=== PATIENT | female | born 1940 ===

== ENCOUNTER 2021-02-12 09:42 | Inpatient (IN) | payer MEDICARE, OTHER, SELFPAY ==
[2021-02-12 10:35] LABS: Hemoglobin 13.5 g/dL (12.0-16.0); Mean Corpuscular HGB CONC 34.5 g/dL (32.0-36.0); Mean Corpuscular Hemoglobin 29.7 pg (27.0-31.0); RBC Distribution Width 17.5 % (11.5-14.5); Red Blood Cell (RBC) Count 4.55 mill/uL (4.20-5.40); White Blood Cell (WBC) Count 11.2 thou/uL (4.8-10.8)
[2021-02-12 10:36] LABS: #Lymphocytes 2.7 thou/uL (1.20-3.40); #Neutrophils 7.5 thou/uL (1.40-6.50); %Eosinophils 0.2 % (0.0-10.0); %Monocytes 8.8 % (0.0-10.0); %Neutrophils 66.9 % (42.0-75.0)
[2021-02-12 10:50] LABS: ALT (SGPT) 43 U/L (8-55); AST (SGOT) 48 U/L (5-34); Albumin 2.9 g/dL (3.4-4.8); Alkaline Phosphatase 48 U/L (40-110); Anion Gap 12 mmol/L (10-20); BUN (Urea Nitrogen) 19 mg/dL (9.8-20.1); Bilirubin, Total 1.5 mg/dL (0.2-1.2); CK (CPK) 685 U/L (29-168); Calc. Creatinine Clearance 0 mL/min (70-130); Calcium 9.2 mg/dL (7.8-10.44); Carbon Dioxide 26 mmol/L (23-31); Chloride 107 mmol/L (98-107); Globulin 3.7 g/dL (2.4-3.5); Glucose 118 mg/dL (83-110); Lipase 602 U/L (8-78); Potassium 4.3 mmol/L (3.5-5.1); Protein, Total 6.6 g/dL (5.8-8.1); Sodium 141 mmol/L (136-145)
[2021-02-12] MEDS ORDERED: Ketorolac Tromethamine 30 MG/ML VIAL ONE (11:03)
[2021-02-12] MEDS ORDERED: Morphine 4 MG/ML VIAL ONE (11:03)
[2021-02-12 11:08] LABS: Bite Cells SLIGHT = 2-5 cells (100X) (0-1/hpf); MDiff Complete? YES; Mean Platelet Volume 9.3 fL (7.4-10.4); Platelet Count 53 thou/uL (130-400); Platelet Morphology Comment Appears Decreased; Polychromasia MODERATE = 3-4 cells (100X) (0-2/hpf); Schistocytes SLIGHT = 2-5 cells (100X) (0-1/hpf)
[2021-02-12] MEDS ORDERED: Iopamidol-370 76% 500 ML 1 ML ONE (11:56)
[2021-02-12 12:01] LABS: SARS-CoV-2 NAA Rapid Test DETECTED (NotDetected)
[2021-02-12 15:02] LABS: Lactic Acid 1.6 mmol/L (0.5-2.2)
[2021-02-12] MEDS ORDERED: Benzonatate 100 MG CAP PO PRN (15:19)
[2021-02-12] MEDS ORDERED: Guaifenesin DM 100-10/5 ML UDCUP PO PRN (15:19)
[2021-02-12] MEDS ORDERED: Sodium Chloride 0.9% 1,000 ML IV SCH (15:30)
[2021-02-12] MEDS ORDERED: Acetaminophen 650 MG Suppository PR PRN (16:03)
[2021-02-12] MEDS ORDERED: Ondansetron PF 4 MG/2 ML Vial IVP PRN (16:03)
[2021-02-12] MEDS ORDERED: Ondansetron ODT 4 MG TAB PO PRN (16:03)
[2021-02-12] MEDS ORDERED: Senokot S 8.6-50 MG TAB PO PRN (16:03)
[2021-02-12 17:05] LABS: Troponin I 0.013 ng/mL (< 0.028)
[2021-02-12] MEDS ORDERED: VANCOMYCIN 1.25 GM/250 ML BAG 1.25 GM in Premix Bag 1 BAG IVPB SCH (18:00)
[2021-02-12 19:50] LABS: Bacteria/HPF None Seen HPF (None Seen); Bilirubin Negative (Negative); Blood, Urine 1+ (Negative); Clarity Clear (Clear); Glucose, Urine (Dipstick) Normal (Negative); Ketone, Urine Negative (Negative); Leukocyte 500 Leu/uL (Negative); Nitrite Negative (Negative); Protein, Urine (Dipstick) 30 mg/dL (Neg-Trace); Squamous Epithelial 0-3 HPF (0-3); Urobilinogen 3 mg/dL (Less than 2)
[2021-02-12 19:56] LABS: Troponin I Less than 0.010 ng/mL (< 0.028)
[2021-02-12] MEDS ORDERED: Vancomycin 1 GM in Premix Bag 1 BAG IVPB SCH (21:00)
[2021-02-12] MEDS: Famotidine/PF 20 mg/2ml Vial SLOW IVP SCH (22:19)
[2021-02-12] MEDS: Cefepime 2 GM in Sodium Chloride 0.9% 100 ML IVPB SCH (22:19)
[2021-02-12] MEDS: Famotidine 20 MG TAB PO SCH (22:20)
[2021-02-13 05:14] LABS: Anion Gap 13 mmol/L (10-20); BUN (Urea Nitrogen) 19 mg/dL (9.8-20.1); CK (CPK) 327 U/L (29-168); Calc. Creatinine Clearance 800 mL/min (70-130); Calcium 8.7 mg/dL (7.8-10.44); Carbon Dioxide 22 mmol/L (23-31); Chloride 114 mmol/L (98-107); Glucose 85 mg/dL (83-110); Lipase 100 U/L (8-78); Potassium 3.6 mmol/L (3.5-5.1); Sodium 145 mmol/L (136-145)
[2021-02-13] MEDS: Cefepime 2 GM in Sodium Chloride 0.9% 100 ML IVPB SCH ×2 (05:43→21:38)
[2021-02-13] MEDS: Cholecalciferol 1,000 UNITS (25 MCG) TAB PO SCH (09:59)
[2021-02-13] MEDS: Famotidine 20 MG TAB PO SCH ×2 (09:59→21:40)
[2021-02-13] MEDS: Zinc Sulfate 220 MG CAP PO SCH (09:59)
[2021-02-13] MEDS: Famotidine/PF 20 mg/2ml Vial SLOW IVP SCH ×2 (09:59→21:38)
[2021-02-13] MEDS: Pantoprazole 40 MG VIAL IVP SCH (09:59)
[2021-02-13] MEDS: Ascorbic Acid 500 mg Chewable Tablet PO SCH (09:59)
[2021-02-13] MEDS ORDERED: Sodium Chloride 0.9% 500 ML IV SCH (10:45)
[2021-02-13] MEDS: Sodium Chloride 0.9% 1,000 ML IV SCH ×2 (11:45→21:38)
[2021-02-13] MEDS ORDERED: FLU VACC QS2021-22(65YR UP)/PF 240 MCG/0.7 ML SYRINGE IM ONE (14:00)
[2021-02-13 17:04] LABS: #Eosinphils 0.1 thou/uL (0.0-0.7); #Lymphocytes 1.6 thou/uL (1.20-3.40); #Monocytes 1.1 thou/uL (0.11-0.59); #Neutrophils 7.6 thou/uL (1.40-6.50); %Basophils 0.1 % (0.0-1.0); %Eosinophils 0.5 % (0.0-10.0); %Lymphocytes 15.7 % (21.0-51.0); %Monocytes 10.7 % (0.0-10.0); %Neutrophils 72.9 % (42.0-75.0); Hemoglobin 11.8 g/dL (12.0-16.0); Mean Corpuscular HGB CONC 33.3 g/dL (32.0-36.0); Mean Corpuscular Hemoglobin 29.7 pg (27.0-31.0); Mean Corpuscular Volume 89.1 fL (78.0-98.0); Mean Platelet Volume 8.8 fL (7.4-10.4); Platelet Count 63 thou/uL (130-400); Red Blood Cell (RBC) Count 3.97 mill/uL (4.20-5.40); White Blood Cell (WBC) Count 10.4 thou/uL (4.8-10.8)
[2021-02-13] MEDS: VANCOMYCIN 1.25 GM/250 ML BAG 1.25 GM in Premix Bag 1 BAG IVPB SCH (17:28)
[2021-02-14 05:44] LABS: #Eosinphils 0.1 thou/uL (0.0-0.7); #Lymphocytes 1.5 thou/uL (1.20-3.40); #Monocytes 1.2 thou/uL (0.11-0.59); #Neutrophils 7.9 thou/uL (1.40-6.50); %Basophils 0.4 % (0.0-1.0); %Eosinophils 0.5 % (0.0-10.0); %Lymphocytes 14.3 % (21.0-51.0); %Monocytes 11.1 % (0.0-10.0); %Neutrophils 73.7 % (42.0-75.0); Mean Corpuscular HGB CONC 33.9 g/dL (32.0-36.0); Mean Corpuscular Hemoglobin 29.5 pg (27.0-31.0); Mean Platelet Volume 8.6 fL (7.4-10.4); Platelet Count 57 thou/uL (130-400); RBC Distribution Width 17.8 % (11.5-14.5); Red Blood Cell (RBC) Count 4.07 mill/uL (4.20-5.40); White Blood Cell (WBC) Count 10.7 thou/uL (4.8-10.8)
[2021-02-14] MEDS: Cefepime 2 GM in Sodium Chloride 0.9% 100 ML IVPB SCH ×2 (05:59→17:12)
[2021-02-14 06:01] LABS: Anion Gap 11 mmol/L (10-20); BUN (Urea Nitrogen) 18 mg/dL (9.8-20.1); Calc. Creatinine Clearance 788 mL/min (70-130); Calcium 8.5 mg/dL (7.8-10.44); Carbon Dioxide 18 mmol/L (23-31); Chloride 121 mmol/L (98-107); Glucose 89 mg/dL (83-110); Potassium 3.2 mmol/L (3.5-5.1); Sodium 147 mmol/L (136-145)
[2021-02-14] MEDS: Sodium Chloride 0.9% 1,000 ML IV SCH (06:19)
[2021-02-14] MEDS: Famotidine 20 MG TAB PO SCH (08:50)
[2021-02-14] MEDS: Ascorbic Acid 500 mg Chewable Tablet PO SCH (08:50)
[2021-02-14] MEDS: Zinc Sulfate 220 MG CAP PO SCH (08:50)
[2021-02-14] MEDS: Cholecalciferol 1,000 UNITS (25 MCG) TAB PO SCH (08:50)
[2021-02-14] MEDS: Pantoprazole 40 MG VIAL IVP SCH (08:51)
[2021-02-14] MEDS: Lactated Ringer's 1,000 ML IV SCH ×2 (11:52→21:33)
[2021-02-14] MEDS: VANCOMYCIN 1.25 GM/250 ML BAG 1.25 GM in Premix Bag 1 BAG IVPB SCH (15:26)
[2021-02-14 15:49] LABS: Vancomycin, Trough 6.5 ug/mL
[2021-02-14 16:30] VITALS: BMI 25.4
[2021-02-14] MEDS ORDERED: Potassium Chloride 10 MEQ in Premix Bag 1 BAG IVPB SCH (21:00)
[2021-02-15] MEDS ORDERED: Vancomycin 1 GM in Premix Bag 1 BAG IVPB SCH (04:00)
[2021-02-15 06:28] LABS: #Eosinphils 0.1 thou/uL (0.0-0.7); #Lymphocytes 1.6 thou/uL (1.20-3.40); #Monocytes 1.7 thou/uL (0.11-0.59); %Basophils 0.2 % (0.0-1.0); %Eosinophils 0.5 % (0.0-10.0); %Lymphocytes 11.8 % (21.0-51.0); %Monocytes 12.6 % (0.0-10.0); %Neutrophils 74.9 % (42.0-75.0); Hemoglobin 12.4 g/dL (12.0-16.0); Mean Corpuscular HGB CONC 33.7 g/dL (32.0-36.0); Mean Corpuscular Hemoglobin 29.3 pg (27.0-31.0); Mean Platelet Volume 8.7 fL (7.4-10.4); Platelet Count 56 thou/uL (130-400); RBC Distribution Width 17.6 % (11.5-14.5); Red Blood Cell (RBC) Count 4.24 mill/uL (4.20-5.40); White Blood Cell (WBC) Count 13.4 thou/uL (4.8-10.8)
[2021-02-15 06:46] LABS: Anion Gap 12 mmol/L (10-20); BUN (Urea Nitrogen) 17 mg/dL (9.8-20.1); Calc. Creatinine Clearance 76 mL/min (70-130); Carbon Dioxide 19 mmol/L (23-31); Chloride 119 mmol/L (98-107); Glucose 100 mg/dL (83-110); Potassium 3.4 mmol/L (3.5-5.1); Sodium 147 mmol/L (136-145)
[2021-02-15] MEDS: Lactated Ringer's 1,000 ML IV SCH ×4 (09:45→19:37)
[2021-02-15] MEDS: Cholecalciferol 1,000 UNITS (25 MCG) TAB PO SCH (09:46)
[2021-02-15] MEDS: Ascorbic Acid 500 mg Chewable Tablet PO SCH (09:46)
[2021-02-15] MEDS: Zinc Sulfate 220 MG CAP PO SCH (09:46)
[2021-02-15] MEDS: Pantoprazole 40 MG VIAL IVP SCH (09:48)
[2021-02-16] MEDS: Lactated Ringer's 1,000 ML IV SCH ×2 (05:07→16:38)
[2021-02-16 05:22] LABS: #Eosinphils 0.1 thou/uL (0.0-0.7); #Lymphocytes 1.8 thou/uL (1.20-3.40); #Neutrophils 11.3 thou/uL (1.40-6.50); %Basophils 0.1 % (0.0-1.0); %Eosinophils 0.3 % (0.0-10.0); %Lymphocytes 11.6 % (21.0-51.0); %Monocytes 13.2 % (0.0-10.0); %Neutrophils 74.8 % (42.0-75.0); Hemoglobin 11.8 g/dL (12.0-16.0); Mean Corpuscular HGB CONC 34.3 g/dL (32.0-36.0); Mean Corpuscular Hemoglobin 29.7 pg (27.0-31.0); Mean Corpuscular Volume 86.5 fL (78.0-98.0); Mean Platelet Volume 8.9 fL (7.4-10.4); Platelet Count 54 thou/uL (130-400); RBC Distribution Width 17.6 % (11.5-14.5); Red Blood Cell (RBC) Count 3.96 mill/uL (4.20-5.40); White Blood Cell (WBC) Count 15.1 thou/uL (4.8-10.8)
[2021-02-16 05:38] LABS: Anion Gap 11 mmol/L (10-20); BUN (Urea Nitrogen) 16 mg/dL (9.8-20.1); Calc. Creatinine Clearance 76 mL/min (70-130); Calcium 8.5 mg/dL (7.8-10.44); Carbon Dioxide 20 mmol/L (23-31); Chloride 119 mmol/L (98-107); Glucose 103 mg/dL (83-110); Sodium 146 mmol/L (136-145)
[2021-02-16] MEDS: Amlodipine 10 MG TAB PO SCH (10:23)
[2021-02-16] MEDS: Ascorbic Acid 500 mg Chewable Tablet PO SCH (10:25)
[2021-02-16] MEDS: Cholecalciferol 1,000 UNITS (25 MCG) TAB PO SCH (10:29)
[2021-02-16] MEDS: Zinc Sulfate 220 MG CAP PO SCH (10:31)
[2021-02-16] MEDS: Pantoprazole 40 MG VIAL IVP SCH (10:32)
[2021-02-16] MEDS: Acetaminophen 325 MG TAB PO PRN (23:35)
[2021-02-17] MEDS: Lactated Ringer's 1,000 ML IV SCH ×2 (00:13→05:25)
[2021-02-17] MEDS: Cholecalciferol 1,000 UNITS (25 MCG) TAB PO SCH (09:11)
[2021-02-17] MEDS: Ascorbic Acid 500 mg Chewable Tablet PO SCH (09:11)
[2021-02-17] MEDS: Pantoprazole 40 MG VIAL IVP SCH (09:11)
[2021-02-17] MEDS: Amlodipine 10 MG TAB PO SCH (09:12)
[2021-02-17] MEDS: Zinc Sulfate 220 MG CAP PO SCH (09:12)
[2021-02-17 12:37] LABS: #Eosinphils 0.2 thou/uL (0.0-0.7); #Lymphocytes 1.9 thou/uL (1.20-3.40); #Monocytes 1.4 thou/uL (0.11-0.59); #Neutrophils 8.4 thou/uL (1.40-6.50); %Basophils 0.1 % (0.0-1.0); %Eosinophils 1.5 % (0.0-10.0); %Monocytes 11.6 % (0.0-10.0); %Neutrophils 70.8 % (42.0-75.0); Hemoglobin 10.8 g/dL (12.0-16.0); Mean Corpuscular HGB CONC 34.6 g/dL (32.0-36.0); Mean Corpuscular Hemoglobin 29.6 pg (27.0-31.0); Mean Corpuscular Volume 85.6 fL (78.0-98.0); Platelet Count 52 thou/uL (130-400); RBC Distribution Width 17.5 % (11.5-14.5); Red Blood Cell (RBC) Count 3.64 mill/uL (4.20-5.40); White Blood Cell (WBC) Count 11.9 thou/uL (4.8-10.8)
[2021-02-17 12:55] LABS: Phosphorus 1.3 mg/dL (2.3-4.7)
[2021-02-17 14:20] LABS: ALT (SGPT) 26 U/L (8-55); AST (SGOT) 27 U/L (5-34); Albumin 2.1 g/dL (3.4-4.8); Alkaline Phosphatase 39 U/L (40-110); Anion Gap 9 mmol/L (10-20); BUN (Urea Nitrogen) 14 mg/dL (9.8-20.1); Bilirubin, Total 1.7 mg/dL (0.2-1.2); CRP (Inflammatory) 11.74 mg/dL (= or < 0.5); Calc. Creatinine Clearance 81 mL/min (70-130); Calcium 8.5 mg/dL (7.8-10.44); Carbon Dioxide 21 mmol/L (23-31); Chloride 118 mmol/L (98-107); Glucose 112 mg/dL (83-110); Magnesium 1.6 mg/dL (1.6-2.6); Protein, Total 5.1 g/dL (5.8-8.1); Sodium 145 mmol/L (136-145)
[2021-02-17] MEDS: Potassium Chloride 10 MEQ in Premix Bag 1 BAG IVPB SCH ×2 (21:57→23:24)
[2021-02-17] MEDS: PHOS-NAK 1 PKT PACK PO SCH (21:57)
[2021-02-18] MEDS: Potassium Chloride 10 MEQ in Premix Bag 1 BAG IVPB SCH ×2 (00:49→02:44)
[2021-02-18] MEDS: PHOS-NAK 1 PKT PACK PO SCH ×3 (09:13→21:30)
[2021-02-18] MEDS: Amlodipine 10 MG TAB PO SCH (09:13)
[2021-02-18] MEDS: Zinc Sulfate 220 MG CAP PO SCH (09:14)
[2021-02-18] MEDS: Ascorbic Acid 500 mg Chewable Tablet PO SCH (09:14)
[2021-02-18] MEDS: Pantoprazole 40 MG VIAL IVP SCH (09:14)
[2021-02-18] MEDS: Cholecalciferol 1,000 UNITS (25 MCG) TAB PO SCH (09:14)
[2021-02-18 13:32] LABS: Hemoglobin 10.5 g/dL (12.0-16.0); Mean Corpuscular HGB CONC 33.6 g/dL (32.0-36.0); Mean Corpuscular Hemoglobin 29.1 pg (27.0-31.0); Mean Corpuscular Volume 86.7 fL (78.0-98.0); Mean Platelet Volume 9.7 fL (7.4-10.4); Platelet Count 56 thou/uL (130-400); RBC Distribution Width 17.9 % (11.5-14.5); Red Blood Cell (RBC) Count 3.62 mill/uL (4.20-5.40); White Blood Cell (WBC) Count 11.4 thou/uL (4.8-10.8)
[2021-02-18 13:50] LABS: ALT (SGPT) 28 U/L (8-55); AST (SGOT) 37 U/L (5-34); Alkaline Phosphatase 42 U/L (40-110); Anion Gap 11 mmol/L (10-20); BUN (Urea Nitrogen) 11 mg/dL (9.8-20.1); Bilirubin, Total 1.7 mg/dL (0.2-1.2); Calc. Creatinine Clearance 86 mL/min (70-130); Calcium 8.1 mg/dL (7.8-10.44); Carbon Dioxide 20 mmol/L (23-31); Chloride 115 mmol/L (98-107); Globulin 3.1 g/dL (2.4-3.5); Glucose 105 mg/dL (83-110); Magnesium 1.5 mg/dL (1.6-2.6); Phosphorus 1.7 mg/dL (2.3-4.7); Potassium 3.2 mmol/L (3.5-5.1); Protein, Total 5.1 g/dL (5.8-8.1); Sodium 143 mmol/L (136-145)
[2021-02-18] MEDS ORDERED: Magnesium 2 GM/50 ML 4 GM in Premix Bag 1 BAG IVPB SCH (14:00)
[2021-02-18] MEDS ORDERED: Potassium Phosphate 30 MMOL, Magnesium Sulfate 2 GM in Sodium Chloride 0.9% 250 ML 250 ML IVPB SCH (14:00)
[2021-02-18 14:06] LABS: #Eosinphils 0.2 thou/uL (0.0-0.7); #Lymphocytes 2.4 thou/uL (1.20-3.40); #Monocytes 1.2 thou/uL (0.11-0.59); #Neutrophils 7.6 thou/uL (1.40-6.50); %Basophils 0.1 % (0.0-1.0); %Eosinophils 1.4 % (0.0-10.0); %Lymphocytes 21.9 % (21.0-51.0); %Monocytes 10.6 % (0.0-10.0); Anisocytosis SLIGHT = 6-15 cells (100X) (0-5/hpf); Band 2 % (5-11); Eosinophils 1 % (0-10); Lymphocytes 26 % (21-51); MDiff Complete? YES; Metamyelocyte 1 % (0-0); Monocytes 6 % (0-10); Neutrophil 64 % (42-75); Ovalocytes SLIGHT = 2-5 cells (100X) (0-1/hpf); Platelet Morphology Comment Appears Decreased; Polychromasia SLIGHT = 2-3 cells (100X) (0-2/hpf)
[2021-02-18 22:27] LABS: SARS-CoV-2 PCR by NAA DETECTED (NotDetected)
[2021-02-19 07:43] LABS: #Eosinphils 0.1 thou/uL (0.0-0.7); #Lymphocytes 2.7 thou/uL (1.20-3.40); #Monocytes 1.6 thou/uL (0.11-0.59); #Neutrophils 9.2 thou/uL (1.40-6.50); %Basophils 0.3 % (0.0-1.0); %Eosinophils 0.7 % (0.0-10.0); %Lymphocytes 19.5 % (21.0-51.0); %Monocytes 11.9 % (0.0-10.0); %Neutrophils 67.5 % (42.0-75.0); Hemoglobin 11.5 g/dL (12.0-16.0); Mean Corpuscular HGB CONC 33.2 g/dL (32.0-36.0); Mean Corpuscular Hemoglobin 28.4 pg (27.0-31.0); Mean Corpuscular Volume 85.4 fL (78.0-98.0); Mean Platelet Volume 9.7 fL (7.4-10.4); Platelet Count 55 thou/uL (130-400); RBC Distribution Width 17.8 % (11.5-14.5); Red Blood Cell (RBC) Count 4.05 mill/uL (4.20-5.40); White Blood Cell (WBC) Count 13.6 thou/uL (4.8-10.8)
[2021-02-19 07:48] LABS: Anion Gap 13 mmol/L (10-20); BUN (Urea Nitrogen) 8 mg/dL (9.8-20.1); Calc. Creatinine Clearance 89 mL/min (70-130); Carbon Dioxide 19 mmol/L (23-31); Chloride 113 mmol/L (98-107); Glucose 102 mg/dL (83-110); Magnesium 1.8 mg/dL (1.6-2.6); Phosphorus 3.2 mg/dL (2.3-4.7); Potassium 3.9 mmol/L (3.5-5.1); Sodium 141 mmol/L (136-145)
[2021-02-19] MEDS: Ascorbic Acid 500 mg Chewable Tablet PO SCH (08:06)
[2021-02-19] MEDS: Cholecalciferol 1,000 UNITS (25 MCG) TAB PO SCH (08:06)
[2021-02-19] MEDS: PHOS-NAK 1 PKT PACK PO SCH ×3 (08:06→20:59)
[2021-02-19] MEDS: Pantoprazole 40 MG VIAL IVP SCH (08:06)
[2021-02-19] MEDS: Zinc Sulfate 220 MG CAP PO SCH (08:06)
[2021-02-19] MEDS: Amlodipine 10 MG TAB PO SCH (08:06)
[2021-02-19] MEDS ORDERED: Magnesium Sulfate 4 GM in Sodium Chloride 0.9% 250 ML 250 ML IVPB SCH (10:30)
[2021-02-19] MEDS: Potassium Chloride 20 MEQ in Premix Bag 1 BAG IVPB SCH ×2 (11:36→13:49)
[2021-02-20] MEDS: Pantoprazole 40 MG VIAL IVP SCH (07:40)
[2021-02-20] MEDS: Zinc Sulfate 220 MG CAP PO SCH (07:41)
[2021-02-20] MEDS: Acetaminophen 325 MG TAB PO PRN (07:41)
[2021-02-20] MEDS: Amlodipine 10 MG TAB PO SCH (07:41)
[2021-02-20] MEDS: Ascorbic Acid 500 mg Chewable Tablet PO SCH (07:41)
[2021-02-20] MEDS: Cholecalciferol 1,000 UNITS (25 MCG) TAB PO SCH (07:42)
[2021-02-20 07:49] LABS: Hemoglobin 10.6 g/dL (12.0-16.0); Mean Corpuscular HGB CONC 35.3 g/dL (32.0-36.0); Mean Corpuscular Hemoglobin 29.5 pg (27.0-31.0); Mean Corpuscular Volume 83.8 fL (78.0-98.0); Mean Platelet Volume 10.8 fL (7.4-10.4); Platelet Count 40 thou/uL (130-400); RBC Distribution Width 18.2 % (11.5-14.5); Red Blood Cell (RBC) Count 3.58 mill/uL (4.20-5.40)
[2021-02-20 07:59] LABS: Anion Gap 10 mmol/L (10-20); BUN (Urea Nitrogen) 11 mg/dL (9.8-20.1); Calc. Creatinine Clearance 83 mL/min (70-130); Calcium 7.9 mg/dL (7.8-10.44); Carbon Dioxide 25 mmol/L (23-31); Chloride 113 mmol/L (98-107); Glucose 105 mg/dL (83-110); Magnesium 1.7 mg/dL (1.6-2.6); Phosphorus 2.6 mg/dL (2.3-4.7); Sodium 144 mmol/L (136-145)
[2021-02-20 08:24] LABS: #Basophils 0.1 thou/uL (0.0-0.2); #Eosinphils 0.1 thou/uL (0.0-0.7); #Lymphocytes 3.1 thou/uL (1.20-3.40); #Monocytes 1.6 thou/uL (0.11-0.59); #Neutrophils 10.1 thou/uL (1.40-6.50); %Basophils 0.3 % (0.0-1.0); %Eosinophils 0.7 % (0.0-10.0); %Lymphocytes 20.4 % (21.0-51.0); %Neutrophils 67.5 % (42.0-75.0); Anisocytosis MODERATE=16-30 cells (100X) (0-5/hpf); Band 2 % (5-11); Eosinophils 1 % (0-10); Lymphocytes 24 % (21-51); MDiff Complete? YES; Metamyelocyte 1 % (0-0); Monocytes 6 % (0-10); Myelocyte 1 % (0-0); Neutrophil 64 % (42-75); Nucleated RBC 1 % (0); Platelet Morphology Comment Appears Decreased; Polychromasia MODERATE = 3-4 cells (100X) (0-2/hpf); Reactive Lymphocytes 1 % (0-10); Schistocytes SLIGHT = 2-5 cells (100X) (0-1/hpf)
[2021-02-20] MEDS ORDERED: Morphine 4 MG/ML VIAL SLOW IVP PRN (16:25)
[2021-02-21 08:16] LABS: Anion Gap 10 mmol/L (10-20); BUN (Urea Nitrogen) 13 mg/dL (9.8-20.1); Calc. Creatinine Clearance 88 mL/min (70-130); Carbon Dioxide 24 mmol/L (23-31); Chloride 113 mmol/L (98-107); Glucose 96 mg/dL (83-110); Magnesium 1.7 mg/dL (1.6-2.6); Phosphorus 2.4 mg/dL (2.3-4.7); Potassium 3.6 mmol/L (3.5-5.1); Sodium 143 mmol/L (136-145)
[2021-02-21 08:28] LABS: #Basophils 0.1 thou/uL (0.0-0.2); #Eosinphils 0.2 thou/uL (0.0-0.7); #Lymphocytes 3.1 thou/uL (1.20-3.40); #Monocytes 1.4 thou/uL (0.11-0.59); #Neutrophils 9.3 thou/uL (1.40-6.50); %Basophils 0.5 % (0.0-1.0); %Eosinophils 1.3 % (0.0-10.0); %Lymphocytes 22.1 % (21.0-51.0); %Monocytes 10.1 % (0.0-10.0); %Neutrophils 66.1 % (42.0-75.0); Anisocytosis MODERATE=16-30 cells (100X) (0-5/hpf); Hemoglobin 10.1 g/dL (12.0-16.0); MDiff Complete? YES; Mean Corpuscular HGB CONC 34.4 g/dL (32.0-36.0); Mean Corpuscular Hemoglobin 29.6 pg (27.0-31.0); Mean Corpuscular Volume 86.2 fL (78.0-98.0); Mean Platelet Volume 9.7 fL (7.4-10.4); Platelet Count 40 thou/uL (130-400); Platelet Morphology Comment Appears Decreased; Polychromasia MODERATE = 3-4 cells (100X) (0-2/hpf); RBC Distribution Width 19.3 % (11.5-14.5); Red Blood Cell (RBC) Count 3.41 mill/uL (4.20-5.40); White Blood Cell (WBC) Count 14.1 thou/uL (4.8-10.8)
[2021-02-21] MEDS: Amlodipine 10 MG TAB PO SCH (09:14)
[2021-02-21] MEDS: Pantoprazole 40 MG VIAL IVP SCH (09:14)
[2021-02-21] MEDS: Cholecalciferol 1,000 UNITS (25 MCG) TAB PO SCH (09:15)
[2021-02-21] MEDS: Zinc Sulfate 220 MG CAP PO SCH (09:15)
[2021-02-21] MEDS: Ascorbic Acid 500 mg Chewable Tablet PO SCH (09:15)
[2021-02-21] MEDS: Acetaminophen 325 MG TAB PO PRN (09:18)
[2021-02-21] MEDS: Magnesium 2 GM/50 ML 2 GM in Premix Bag 1 BAG IVPB SCH ×2 (10:17→14:18)
[2021-02-21] MEDS: Potassium Chloride 20 MEQ in Premix Bag 1 BAG IVPB SCH ×2 (17:09→18:25)
[2021-02-22] MEDS: Amlodipine 10 MG TAB PO SCH (09:30)
[2021-02-22] MEDS: Cholecalciferol 1,000 UNITS (25 MCG) TAB PO SCH (09:31)
[2021-02-22] MEDS: Zinc Sulfate 220 MG CAP PO SCH (09:31)
[2021-02-22] MEDS: Ascorbic Acid 500 mg Chewable Tablet PO SCH (09:31)
[2021-02-22] MEDS: Pantoprazole 40 MG VIAL IVP SCH (09:32)
[2021-02-22 12:18] LABS: Anion Gap 11 mmol/L (10-20); BUN (Urea Nitrogen) 11 mg/dL (9.8-20.1); Calc. Creatinine Clearance 88 mL/min (70-130); Calcium 8.1 mg/dL (7.8-10.44); Carbon Dioxide 22 mmol/L (23-31); Chloride 112 mmol/L (98-107); Glucose 127 mg/dL (83-110); Magnesium 1.9 mg/dL (1.6-2.6); Phosphorus 2.1 mg/dL (2.3-4.7); Potassium 3.8 mmol/L (3.5-5.1); Sodium 141 mmol/L (136-145); Uric Acid 2.9 mg/dL (2.6-6.0)
[2021-02-22 12:26] LABS: #Eosinphils 0.3 thou/uL (0.0-0.7); #Lymphocytes 2.7 thou/uL (1.20-3.40); #Monocytes 1.4 thou/uL (0.11-0.59); #Neutrophils 12.5 thou/uL (1.40-6.50); %Basophils 0.2 % (0.0-1.0); %Eosinophils 1.5 % (0.0-10.0); %Monocytes 8.4 % (0.0-10.0); %Neutrophils 73.9 % (42.0-75.0); Anisocytosis MODERATE=16-30 cells (100X) (0-5/hpf); Band 6 % (5-11); Bite Cells SLIGHT = 2-5 cells (100X) (0-1/hpf); Eosinophils 1 % (0-10); Hemoglobin 10.3 g/dL (12.0-16.0); Lymphocytes 15 % (21-51); MDiff Complete? YES; Mean Corpuscular HGB CONC 32.2 g/dL (32.0-36.0); Mean Corpuscular Volume 86.9 fL (78.0-98.0); Mean Platelet Volume 9.9 fL (7.4-10.4); Monocytes 6 % (0-10); Myelocyte 1 % (0-0); Neutrophil 71 % (42-75); Platelet Count 46 thou/uL (130-400); Platelet Morphology Comment Appears Decreased; Polychromasia MODERATE = 3-4 cells (100X) (0-2/hpf); Red Blood Cell (RBC) Count 3.69 mill/uL (4.20-5.40); Schistocytes SLIGHT = 2-5 cells (100X) (0-1/hpf); White Blood Cell (WBC) Count 16.9 thou/uL (4.8-10.8)
[2021-02-22] MEDS ORDERED: Metoprolol Tartrate 25 MG TAB PO SCH (15:00)
[2021-02-22] MEDS: PHOS-NAK 1 PKT PACK PO SCH ×2 (15:46→20:57)
[2021-02-22] MEDS: levETIRAcetam 500 MG TAB PO SCH (20:57)
[2021-02-23 07:22] LABS: Hemoglobin 10.1 g/dL (12.0-16.0); Mean Corpuscular Hemoglobin 28.8 pg (27.0-31.0); Mean Corpuscular Volume 87.3 fL (78.0-98.0); Mean Platelet Volume 10.2 fL (7.4-10.4); Platelet Count 42 thou/uL (130-400); RBC Distribution Width 21.7 % (11.5-14.5); Red Blood Cell (RBC) Count 3.51 mill/uL (4.20-5.40); White Blood Cell (WBC) Count 15.9 thou/uL (4.8-10.8)
[2021-02-23 07:24] LABS: Anion Gap 12 mmol/L (10-20); BUN (Urea Nitrogen) 10 mg/dL (9.8-20.1); Calc. Creatinine Clearance 83 mL/min (70-130); Carbon Dioxide 22 mmol/L (23-31); Chloride 112 mmol/L (98-107); Glucose 114 mg/dL (83-110); Magnesium 1.8 mg/dL (1.6-2.6); Potassium 3.9 mmol/L (3.5-5.1); Sodium 142 mmol/L (136-145)
[2021-02-23 09:11] VITALS: BP 158/78; TEMP 98.5
[2021-02-23] MEDS: Cholecalciferol 1,000 UNITS (25 MCG) TAB PO SCH (10:34)
[2021-02-23] MEDS: Ascorbic Acid 500 mg Chewable Tablet PO SCH (10:35)
[2021-02-23] MEDS: levETIRAcetam 500 MG TAB PO SCH (10:35)
[2021-02-23] MEDS: PHOS-NAK 1 PKT PACK PO SCH (10:36)
[2021-02-23] MEDS: Zinc Sulfate 220 MG CAP PO SCH (10:36)
[2021-02-23] MEDS: Pantoprazole 40 MG VIAL IVP SCH (10:36)
[2021-02-23 10:37] LABS: #Eosinphils 0.2 thou/uL (0.0-0.7); #Lymphocytes 2.7 thou/uL (1.20-3.40); #Monocytes 1.6 thou/uL (0.11-0.59); #Neutrophils 11.4 thou/uL (1.40-6.50); %Eosinophils 1.2 % (0.0-10.0); %Monocytes 10.2 % (0.0-10.0); %Neutrophils 71.5 % (42.0-75.0)
[2021-02-23 10:38] LABS: Anisocytosis MODERATE=16-30 cells (100X) (0-5/hpf); Band 8 % (5-11); Eosinophils 1 % (0-10); Lymphocytes 12 % (21-51); MDiff Complete? YES; Monocytes 13 % (0-10); Myelocyte 1 % (0-0); Neutrophil 64 % (42-75); Nucleated RBC 1 % (0); Platelet Morphology Comment Appears Decreased; Polychromasia MODERATE = 3-4 cells (100X) (0-2/hpf); Reactive Lymphocytes 1 % (0-10); Schistocytes SLIGHT = 2-5 cells (100X) (0-1/hpf)
[2021-02-23] MEDS: Amlodipine 10 MG TAB PO SCH (10:50)
== END 2021-02-23 15:36 | DRG 438 ==
LOC: ERS 09:42 → ERHOLD 14:11 → 2SW 21:50 → T4-B 02-16 14:59
PROVIDERS: ADMIT Internal Medicine; ATTEND Family Medicine
PROC: 8E0ZXY6 Isolation (ICD-10-PCS; principal; 2021-02-12)
DX: K85.90 Acute pancreatitis without necrosis or infection, unspecified (principal); U07.1 COVID-19; G93.41 Metabolic encephalopathy; E86.0 Dehydration; D69.6 Thrombocytopenia, unspecified; I48.91 Unspecified atrial fibrillation; F03.90 Unspecified dementia, unspecified severity, without behavioral disturbance, psychotic disturbance, mood disturbance, and anxiety; M79.605 Pain in left leg; W18.30XA Fall on same level, unspecified, initial encounter; G40.909 Epilepsy, unspecified, not intractable, without status epilepticus; E87.8 Other disorders of electrolyte and fluid balance, not elsewhere classified; Z66 Do not resuscitate
CPT/HCPCS: 36415; 70450; 71045; 72125; 72170; 74177; 76700; 80048; 80053; 80202; 81003; 81015; 82533; 82550; 82728; 83605; 83690; 83735; 84100; 84145; 84443; 84484; 84550; 85025; 85379; 85730; 86140; 87040; 87086; 93005; 93010; 93306; 96365; 96366; 96368; 96375; 96376; C9113; J0692; J1885; J2270; J3370; J3475; J3480; J3490; J7030; J7050; J7120; Q9967; S0028; U0002; U0003; U0005